=== PATIENT | female | born 1965 | race Caucasian/White ===

== ENCOUNTER 2023-10-07 21:41 | Emergency (ER) | payer BC ==
[~2023-10-07] VITALS: Ht 162.6 cm; Wt 70.3 kg
[2023-10-07 22:01] LABS: *BILIRUBIN,URIN NEGATIVE (NEGATIVE); *BLOOD, URINE NEGATIVE (NEGATIVE); *CLARITY,URINE CLEAR (CLEAR); *COLOR,URINE YELLOW (YELLOW); *KETONES,URINE NEGATIVE (NEGATIVE); *PROTEIN,URINE NEGATIVE (NEGATIVE); *UROBILINOGEN,URINE 0.2 E.U./dl (NORMAL); LEUKOCYTE ESTERASE ,URINE NEGATIVE (NEGATIVE); NITRITE, URINE NEGATIVE (NEGATIVE); PH,URINE 5.5 (5.0-8.0); UGLUCOSE NEGATIVE (NEGATIVE)
[2023-10-07] MEDS ORDERED: METR500T PO (23:42)
[2023-10-07] MEDS ORDERED: METRONIDAZOLE 500 MG TABLET ONE (23:48)
[2023-10-07] MEDS: METRONIDAZOLE 500 MG TABLET PO ONE (23:52)
[2023-10-07 23:54] VITALS: BP 110/78; TEMP 98.6; O2SAT 97
== END 2023-10-07 23:55 | disposition home or self-care (01) ==
LOC: ER 21:45
DX: N76.0 Acute vaginitis (principal); Z98.890 Other specified postprocedural states; Z79.899 Other long term (current) drug therapy; Z88.5 Allergy status to narcotic agent; Z60.2 Problems related to living alone
CPT/HCPCS: 87210; A4606; A4663